=== PATIENT | male | born 1965 | race Caucasian/White ===

== ENCOUNTER → 2017-08-22 | Outpatient (CLI) | payer BC ==
--- NOTE | 2017-08-22 21:03 | Diagnostic Imaging Report ---
EXAM: XR Nasal Bones, 3 or More Views CLINICAL HISTORY: PAIN TECHNIQUE: Frontal and lateral views of the nasal bones. COMPARISON: No relevant prior studies available. FINDINGS: Bones/joints: Unremarkable. No acute fracture. Sinuses: Unremarkable. No air-fluid levels. Soft tissues: Unremarkable. IMPRESSION: Normal nasal bone x-rays.
== END | disposition home or self-care (01) ==
LOC: RAD 20:13
DX: J34.89 Other specified disorders of nose and nasal sinuses (principal)
CPT/HCPCS: 70160